=== PATIENT | female | born 1960 | race Two or more races ===

== ENCOUNTER 2022-01-11 07:03 | Day surgery (SDC) | payer MEDICAID ==
[~2022-01-11] VITALS: Ht 152.4 cm; Wt 68.0 kg
[~2022-01-11 07:03] MED LIST: ASPI-543 PO; CAR3125T PO; SIMV10TA84 PO
[2022-01-11] MEDS ORDERED: MIDAZOLAM HCL 2MG/2ML 2ml VIAL (1mg/ml) ONE (08:48)
[2022-01-11] MEDS ORDERED: fentaNYL CITRATE 100 MCG/2 ML VL ONE (08:48)
[2022-01-11] MEDS ORDERED: HEPARIN SODIUM (PORCINE) 5000 UNITS/ML 1ML VIAL ONE (08:48)
[2022-01-11] MEDS ORDERED: VERAPAMIL 2.5MG/ML INJ 2ML VIAL IV ONE (08:48)
[2022-01-11] MEDS ORDERED: SODIUM CHL 0.9% 0 ML ONE (08:48)
[2022-01-11] MEDS ORDERED: ANGIOMAX 250 MG VIAL IV ONE (08:48)
[2022-01-11] MEDS ORDERED: IODIXANOL 320MG/ML 100ML BTL IV ONE (08:49)
[2022-01-11] MEDS ORDERED: LIDOCAINE 2%HCL (LOCAL ANESTH.) INJ 10ml MDV ONE (08:49)
== END 2022-01-11 11:35 | disposition home or self-care (01) ==
LOC: CATH 07:03
PROVIDERS: ATTEND Internal Medicine Cardiovascular Disease
DX: I25.10 Atherosclerotic heart disease of native coronary artery without angina pectoris (principal); E78.5 Hyperlipidemia, unspecified; J43.9 Emphysema, unspecified; I27.20 Pulmonary hypertension, unspecified; Z87.891 Personal history of nicotine dependence; Z20.822 Contact with and (suspected) exposure to COVID-19
CPT/HCPCS: 93458; C1887; C1894; J1644; J2001; J2250; J3010; J7030; Q9967; U0003; 99152